=== PATIENT | male | born 1995 | race Caucasian/White ===

== ENCOUNTER 2021-02-01 15:04 | Outpatient (CLI) | payer BC | END 2021-02-01 15:05 | disposition home or self-care (01) | LOC: CTENTCT 15:04 | PROVIDERS: ATTEND Otolaryngology Plastic Surgery within the Head & Neck | DX: J34.2 Deviated nasal septum (principal) | CPT/HCPCS: 70486 ==

== ENCOUNTER 2021-02-08 16:40 | Emergency (ER) | payer BC, OTHER ==
[2021-02-08 18:25] LABS: Hep C IgG Ab Non-Reactive (NonReactive); Hep C Index 0.07 S/CO (0-0.79)
[2021-02-08 20:14] LABS: HBSAB Concentration 89.97 mIU/mL; Hep B Surf AB Reactive (NonReactive)
[2021-02-09 02:59] LABS: HIV (1/2) Antibody/Antigen Non-Reactive (NonReactive); HIV 1/2 INDEX 0.09 S/CO (<1.00)
== END 2021-02-08 17:25 | disposition home or self-care (01) ==
LOC: ERS 16:40
DX: Z77.21 Contact with and (suspected) exposure to potentially hazardous body fluids (principal)
CPT/HCPCS: 86706; 86803; 87389; 99283

== ENCOUNTER 2021-02-19 07:14 | Outpatient (CLI) | payer BC ==
[2021-02-19 23:15] LABS: SARS-CoV-2 PCR by NAA Not Detected (NotDetected)
== END 2021-02-19 07:15 | disposition home or self-care (01) ==
LOC: LABBT 07:14
PROVIDERS: ATTEND Otolaryngology Plastic Surgery within the Head & Neck
DX: Z01.812 Encounter for preprocedural laboratory examination (principal); J35.8 Other chronic diseases of tonsils and adenoids; J34.2 Deviated nasal septum; J30.9 Allergic rhinitis, unspecified; J32.9 Chronic sinusitis, unspecified; J34.3 Hypertrophy of nasal turbinates; J35.3 Hypertrophy of tonsils with hypertrophy of adenoids; J35.01 Chronic tonsillitis; R19.6 Halitosis; Z20.822 Contact with and (suspected) exposure to COVID-19
CPT/HCPCS: U0003; U0005

== ENCOUNTER 2021-02-24 06:26 | Day surgery (SDC) | payer BC ==
[2021-02-22 14:13] VITALS: BMI 27.9
[2021-02-24] MEDS ORDERED: Oxymetazoline HCl 0.05% (30 ML BOT) ONE (06:41)
[2021-02-24] MEDS ORDERED: Fentanyl 100 MCG/2 ML VIAL ONE ×3 (06:46→09:16)
[2021-02-24] MEDS ORDERED: Lidocaine 4% Topical Sol 50 ML BOT ONE (06:46)
[2021-02-24] MEDS ORDERED: Midazolam HCl 2 mg/2 ml Vial ONE (06:46)
[2021-02-24] MEDS ORDERED: Lidocaine 1% w/Epinephrine 1:100K 20 ML VIAL ONE (06:48)
[2021-02-24] MEDS ORDERED: Ferric Subsulfate (ASTRINGYN) 8 GM VIAL ONE (06:48)
[2021-02-24] MEDS ORDERED: Bacitracin Zinc Ointment 30 gm TUBE ONE (06:48)
[2021-02-24] MEDS ORDERED: AFRIN NASAL MIST 15 ML BOT ONE (06:48)
[2021-02-24] MEDS ORDERED: Lidocaine 1% PF 5 ML VIAL ONE (07:27)
[2021-02-24] MEDS ORDERED: Dexamethasone 20 MG/5 ML VIAL ONE (07:27)
[2021-02-24] MEDS ORDERED: Rocuronium Bromide 10 MG/ML (10ML VIAL) ONE (07:27)
[2021-02-24] MEDS ORDERED: Glycopyrrolate 0.2 MG/ML 5 ML SYRINGE ONE (07:27)
[2021-02-24] MEDS ORDERED: PROPOFOL 200 MG/20 ML VIAL ONE (07:27)
[2021-02-24] MEDS ORDERED: Ondansetron PF 4 MG/2 ML Vial ONE (07:27)
[2021-02-24] MEDS ORDERED: Meperidine HCl/PF 25 MG/ML VIAL ONE (09:08)
[2021-02-24] MEDS ORDERED: Morphine 4 MG/ML VIAL ONE (10:18)
[2021-02-24] MEDS ORDERED: Hydrocodone-Acetamin 15 ML UDCUP ONE (11:26)
== END 2021-02-24 12:20 | disposition home or self-care (01) ==
LOC: SDC 06:26
PROVIDERS: ATTEND Otolaryngology Plastic Surgery within the Head & Neck
PROC: 09TL0ZZ Resection of Nasal Turbinate, Open Approach (ICD-10-PCS; principal; 2021-02-24)
PROC: 09TU8ZZ Resection of Right Ethmoid Sinus, Via Natural or Artificial Opening Endoscopic (ICD-10-PCS; principal; 2021-02-24)
PROC: 09TV8ZZ Resection of Left Ethmoid Sinus, Via Natural or Artificial Opening Endoscopic (ICD-10-PCS; principal; 2021-02-24)
PROC: 099R8ZZ Drainage of Left Maxillary Sinus, Via Natural or Artificial Opening Endoscopic (ICD-10-PCS; principal; 2021-02-24)
PROC: 099W8ZZ Drainage of Right Sphenoid Sinus, Via Natural or Artificial Opening Endoscopic (ICD-10-PCS; principal; 2021-02-24)
PROC: 0CTPXZZ Resection of Tonsils, External Approach (ICD-10-PCS; principal; 2021-02-24)
PROC: 099Q8ZZ Drainage of Right Maxillary Sinus, Via Natural or Artificial Opening Endoscopic (ICD-10-PCS; principal; 2021-02-24)
PROC: 099X8ZZ Drainage of Left Sphenoid Sinus, Via Natural or Artificial Opening Endoscopic (ICD-10-PCS; principal; 2021-02-24)
PROC: 09SM0ZZ Reposition Nasal Septum, Open Approach (ICD-10-PCS; principal; 2021-02-24)
PROC: 099T8ZZ Drainage of Left Frontal Sinus, Via Natural or Artificial Opening Endoscopic (ICD-10-PCS; principal; 2021-02-24)
PROC: 0CTQXZZ Resection of Adenoids, External Approach (ICD-10-PCS; principal; 2021-02-24)
DX: J32.9 Chronic sinusitis, unspecified (principal); J34.2 Deviated nasal septum; J34.3 Hypertrophy of nasal turbinates; J34.89 Other specified disorders of nose and nasal sinuses; J35.03 Chronic tonsillitis and adenoiditis; J30.9 Allergic rhinitis, unspecified; J35.8 Other chronic diseases of tonsils and adenoids
CPT/HCPCS: 88304; J1100; J2175; J2250; J2270; J2405; J2704; J3010